=== PATIENT | male | born 1970 | race Caucasian/White ===

== ENCOUNTER → 2020-07-18 | Outpatient (CLI) | payer BC ==
--- NOTE | 2020-07-18 17:49 | CT ---
EXAMINATION TYPE: CT abdomen pelvis wo/w con DATE OF EXAM: 07/18/2020 COMPARISON: None HISTORY: Right sided abdominal pain. CT DLP: 1875 mGycm Automated exposure control for dose reduction was used. TECHNIQUE: Helical acquisition of images was performed from the lung bases through the pelvis. CONTRAST: Performed with Oral Contrast and without and with IV Contrast, patient injected with 100 mL of Isovue M300. FINDINGS: LUNG BASES: Normal. LIVER: Normal. BILIARY SYSTEM: Normal. PANCREAS: Normal. SPLEEN: Normal. ADRENALS: Normal. KIDNEYS: No hydronephrosis or urolithiasis. There is normal renal enhancement and excretion. BOWEL: No obstruction or thickening. PERITONEUM: No pneumoperitoneum. No free fluid. LYMPH NODES: No lymphadenopathy. PELVIS: Normal. VASCULATURE: No abdominal aortic aneurysm. MUSCULOSKELETAL: Degenerative changes and dextrocurvature of the lumbar spine. IMPRESSION: No findings to explain patient's right-sided abdominal pain. No hydronephrosis or urolithiasis. Jennifer l appendix.
== END | disposition home or self-care (01) ==
LOC: RADCTMAIN 11:44
PROVIDERS: ATTEND Family Medicine
DX: R10.84 Generalized abdominal pain (principal)
CPT/HCPCS: 74178; Q9967 ×2

== ENCOUNTER → 2020-09-18 | Outpatient (CLI) | payer BC ==
[2020-09-18 16:42] LABS: Basophils % (A) 0 %; Eosinophils # (A) 0.2 k/uL (0-0.7); Eosinophils % (A) 2 %; HCT 45.3 % (39.0-53.0); Lymphocytes % (A) 30 %; MCH 30.2 pg (25.0-35.0); MCV 91.6 fL (80.0-100.0); Mean Platelet Volume 7.7; Monocytes # (A) 0.4 k/uL (0-1.0); Monocytes % (A) 4 %; Neutrophils # (A) 6.1 k/uL (1.3-7.7); Neutrophils % (A) 62 %; Platelet Count 265 k/uL (150-450); RBC 4.95 m/uL (4.30-5.90); RDW 13.6 % (11.5-15.5); WBC 9.8 k/uL (3.8-10.6)
[2020-09-19 02:12] LABS: Gliadin AB IgA, Deaminated NEGATIVE (NEGATIVE); Gliadin AB IgA, Unit <0.2 U/mL; Gliadin AB IgG, Deaminated NEGATIVE (NEGATIVE)
[2020-09-19 04:02] LABS: African American GFR (CKD) 91.5 (60.0-200.0); Albumin 4.8 g/dL (3.80-4.90); Albumin/Globulin Ratio 2.53 (1.60-3.17); Anion Gap 8.9 mmol/L (4.00-12.00); Calcium 9.5 mg/dL (8.7-10.3); Carbon Dioxide 23.1 mmol/L (21.6-31.8); Globulin 1.9 g/dL (1.6-3.3); Potassium 4.2 mmol/L (3.5-5.5); Total Bilirubin 0.7 mg/dL (0.3-1.2); Total Protein 6.7 g/dL (6.2-8.2)
[2020-09-19 04:11] LABS: T4, Free (Free Thyroxine) 1.1 ng/dL (0.80-1.80)
== END | disposition home or self-care (01) ==
LOC: LABWHC1 16:14
PROVIDERS: ATTEND Internal Medicine
DX: R19.7 Diarrhea, unspecified (principal)
CPT/HCPCS: 36415; 80053; 82656; 83516; 83993; 84439; 84443; 85025; 87324

== ENCOUNTER → 2023-08-01 | Outpatient (CLI) | payer BC ==
--- NOTE | 2023-08-01 18:00 | MR ---
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 TECHNIQUE: Multi planar, multi sequence imaging was performed through the brain including: T1, T2, In version recovery, susceptibility weighted imaging and gradient echo imaging and Diffusion weighted im aging. The patient was then given intravenous contrast and multi planar, T1 fat-saturation images wer e obtained. IV Contrast: 8.8 cc Gadavist FINDINGS: Diffusion-weighted imaging shows no evidence of recent infarct. No evidence of acute parenchymal hemo rrhage or mass effect. No evidence of abnormal masslike enhancement throughout the brain. The right lateral ventricle appears relatively larger than the left, with the septum pellucidum overa ll displaced towards the left, however there is no transependymal shift of fluid seen, and the third and fourth ventricles appear nondilated. Basal cisterns appear patent. There is evidence of prior sub occipital decompression, with suboccipital fluid collection measuring 3.4 cm transverse, 5.7 cm AP, a nd 1.3 cm craniocaudal, without abnormal postcontrast enhancement seen. No visualized significant cer ebellar tonsillar ectopia. The major vascular flow voids at the base of the brain are preserved. There are a few small scattered FLAIR signal normalities in the subcortical white matter of the bilateral cerebral hemispheres, like ly mild chronic microvascular ischemic changes. Visualized orbits and paranasal sinuses are grossly u nremarkable. IMPRESSION: 1. Small suboccipital fluid collection without abnormal enhancement, likely postoperative from prior suboccipital decompression. 2. Slightly asymmetric appearance of the lateral ventricles, most likely chronic/developmental. Coul d correlate with any prior outside imaging. 3. No evidence of acute intracranial hemorrhage, infarct, midline shift, or mass affect. No abnormal enhancement is seen. 4. Mild chronic microvascular ischemic changes.
== END | disposition home or self-care (01) ==
LOC: RADMRIMAIN 15:44
PROVIDERS: ATTEND Family Medicine
DX: I67.82 Cerebral ischemia (principal)
CPT/HCPCS: 70553; A9585